=== PATIENT | female | born 1955 | race Caucasian/White ===

== ENCOUNTER → 2018-01-19 | Outpatient (CLI) | payer MEDICARE, OTHER ==
[~2018-01-19] MED LIST: APAP500 PO; ASPIRIN325 PO; COUMADIN 5 MG TA5 M1 PO; ENOXAPARIN40 MG/0.1 SUBQ; FISH OIL 1,0001 EAC5 PO; FISH OIL 1,0001 EAC7 PO; FLEET ENEMA118 ML RC; HYDROCODON-ACE1 EAC7 PO; MAGNESIUM CITR296 ML PO; NAPROSYN500 MG PO; NEURONTIN 300300 M1 PO; NORCO 5-325 TA1 EACH PO; OXYCODONE HCL 55 MG PO; PERCOCET 5-3251 EACH PO; PERCOCET PO; SYNTHROID100 MCG PO; SYNTHROID175 MCG PO; TRAMADOL 50 MG50 MG PO; WELLBUTRIN SR150 MG PO
== END ==
LOC: M.RAD 11:29
DX: M47.892 Other spondylosis, cervical region (principal)

== ENCOUNTER → 2018-01-20 | Outpatient (CLI) | payer MEDICARE, OTHER | LOC: M.RAD 09:47 | DX: Z12.31 Encounter for screening mammogram for malignant neoplasm of breast (principal) ==

== ENCOUNTER → 2018-02-21 | Outpatient (CLI) | payer MEDICARE, OTHER | LOC: M.ULTRA 09:19 | DX: N63.10 Unspecified lump in the right breast, unspecified quadrant (principal); N63.20 Unspecified lump in the left breast, unspecified quadrant ==

== ENCOUNTER 2019-08-22 10:05 | Emergency (ER) | payer MEDICARE, OTHER ==
[~2019-08-22] VITALS: Ht 167.6 cm; Wt 106.6 kg
[2019-08-22] MEDS ORDERED: STOOL SOFTENER100 MG PO (10:20)
[2019-08-22] MEDS ORDERED: FISH OIL 1,0001 EAC9 PO (10:20)
[2019-08-22 10:25] LABS: URINE BILIRUBIN NEGATIVE (Negative); URINE BLOOD NEGATIVE (Negative); URINE CLARITY SL CLOUDY; URINE COLOR YELLOW; URINE GLUCOSE-RANDOM NEGATIVE (Negative); URINE KETONES NEGATIVE (Negative); URINE LEUKOCYTES-REFLEX 1+ (Negative); URINE PROTEIN NEGATIVE (Negative); URINE UROBILINOGEN 0.2 E.U./dl (0.2-1.0)
[2019-08-22 10:28] LABS: URINE NITRITE-REFLEX POSITIVE (Negative)
[2019-08-22 10:36] LABS: BACTERIA-REFLEX >30 Many /HPF (None Seen); CASTS None Seen /LPF (None Seen); MUCUS None Seen strn/LPF (None Seen); SQUAMOUS 4-10 Moderate /LPF (0-3); URINE RBC 0-2 Rare /HPF (0-2); URINE WBC-REFLEX 0-5 Rare /HPF (0-5)
[2019-08-22 10:37] LABS: CRYSTALS None Seen /LPF (None Seen)
[2019-08-22 10:37] LABS: ABSOLUTE BASOPHILS 0.1 thou/uL (0.0-0.2); ABSOLUTE EOSINOPHILS 0.3 thou/uL (0.0-0.7); ABSOLUTE LYMPHOCYTES 2.2 thou/uL (0.8-5.3); ABSOLUTE MONOCYTES 0.5 thou/uL (0.0-1.2); ABSOLUTE NEUTROPHILS 4.4 thou/uL (1.6-8.1); BASOPHILS 0.9 %; EOSINOPHILS 3.6 %; HEMATOCRIT 41.6 % (37.0-47.0); HEMOGLOBIN 14.1 gm/dL (12.0-15.0); LYMPHOCYTES 29.4 %; MCH 29.3 pg (26.0-34.0); MCHC 33.8 g/dL (28.0-37.0); MCV 86.8 fL (80.0-100.0); NUCLEATED RBCS 0 /100WBC; PLATELET COUNT* 301 thou/uL (150-400); POLYS 59.1 %; RDW-CV 13.1 % (10.5-14.5); WBC 7.5 thou/uL (4.0-11.0)
[2019-08-22 10:44] LABS: CREATININE 0.8 mg/dL (0.6-1.3); POTASSIUM 3.9 mmol/L (3.5-5.1)
[2019-08-22 10:48] LABS: TOTAL BILIRUBIN 0.4 mg/dL (<0.1-1.0); TOTAL PROTEIN 7.9 g/dL (6.4-8.2)
[2019-08-22] MEDS ORDERED: NORCO 5-325 TA1 EAC1 PO (11:56)
[2019-08-22] MEDS ORDERED: BACTRIM DS TAB1 EACH PO (11:56)
[2019-08-22] MEDS ORDERED: ONDANSETRON HCL4 M3 PO (11:56)
[2019-08-22 12:19] VITALS: BP 135/85
== END 2019-08-22 12:20 | disposition home or self-care (01) ==
LOC: M.ERS 10:05
PROVIDERS: Physician Assistant
DX: N39.0 Urinary tract infection, site not specified (principal); K62.89 Other specified diseases of anus and rectum; K58.9 Irritable bowel syndrome, unspecified; E89.0 Postprocedural hypothyroidism; Z88.5 Allergy status to narcotic agent; Z90.710 Acquired absence of both cervix and uterus; Z90.49 Acquired absence of other specified parts of digestive tract